=== PATIENT | female | born 1960 | race Caucasian/White ===

== ENCOUNTER → 2017-09-02 | Outpatient (CLI) | payer BC ==
--- NOTE | 2017-09-02 11:56 | RAD ---
Knee x-rays Indication: Left knee pain for 2 days. Limited range of motion. Technique: 3 views of the left knee Comparison: None Findings: No acute fracture or dislocation. Moderate tricompartmental osteoarthritis as suggested by bony spurs and joint space narrowing primarily in the patellofemoral and lateral joint compartment. Small suprapatellar effusion. The cortical bony fragment in the suprapatellar space superior to the posterior margin of the patella. Impression: 1. Moderate tricompartmental osteoarthritis. 2. Well-corticated bony fragment in the suprapatellar space may represent avulsion fracture or a fractured osteophyte
== END | disposition home or self-care (01) ==
LOC: DXRADRC 10:29
PROVIDERS: ATTEND Physician Assistant
DX: M17.12 Unilateral primary osteoarthritis, left knee (principal); M25.462 Effusion, left knee
CPT/HCPCS: 73562